=== PATIENT | male | born 1990 | race African-American/Black ===

== ENCOUNTER 2020-06-28 13:04 | Emergency (ER) | payer MEDICAID ==
[~2020-06-28] VITALS: Ht 170.2 cm; Wt 75.0 kg
--- NOTE | 2020-06-28 13:50 | NUR ---
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
--- NOTE | 2020-06-28 14:22 | NUR ---
PT IN GOWN IN [facility]. PIV ACCESS ESTABLISHED AT THIS TIME. LABS DRAWN. PT ATTACHED TO VS MONITORS. VSS. NEW ORDERS RECEIVED AT THIS TIME. PT TO BE MEDICATED PER MAR FOR PAIN AND NAUSEA. IV FLUIDS INITIATED AT THIS TIME.
[2020-06-28] MEDS ORDERED: MORPHINE SULFATE 4 MG/ML, 1ML ONE (14:26)
[2020-06-28] MEDS ORDERED: ONDANSETRON 2MG/ML, 2ML ONE (14:26)
[2020-06-28] MEDS ORDERED: ONDANSETRON 2MG/ML, 2ML IVPush ONE (14:30)
[2020-06-28] MEDS ORDERED: MORPHINE SULFATE 4 MG/ML, 1ML IVPush PRN (14:30)
[2020-06-28] MEDS ORDERED: SODIUM CHLORIDE 0.9% 1,000ML IVBOLUS ONE (14:30)
[2020-06-28 14:41] LABS: BASOPHILS % (AUTO) 1 % (0-1); EOSINOPHILS % (AUTO) 2 % (1-7); LYMPHOCYTES % (AUTO) 26 % (22-44); MEAN CORPUSCULAR HGB CONC 32.3 g/dL (33.2-36.2); MEAN PLATELET VOLUME 8.7 fL (7.4-10.4); MONOCYTES % (AUTO) 10 % (2-9); NEUTROPHILS % (AUTO) 62 % (42-75); PLATELET COUNT 225 x10^3/uL (130-400); RED BLOOD COUNT 5.79 x10^6/uL (4.38-5.82); RED CELL DISTRIBUTION WIDTH 14.7 % (9.4-14.8)
[2020-06-28 14:43] LABS: MD NO
[2020-06-28 14:45] LABS: ALANINE AMINOTRANSFERASE 32 U/L (12-78); ALBUMIN 3.9 g/dL (3.4-5.0); ANION GAP 3 mmol/L (5-15); CALCIUM 8.9 mg/dL (8.5-10.1); CHLORIDE 105 mmol/L (98-107); CREATININE 1.36 mg/dL (0.7-1.3)
[2020-06-28 14:47] LABS: ALKALINE PHOSPHATASE 72 U/L (45-117); BILIRUBIN,TOTAL 0.8 mg/dL (0.2-1.0); TOTAL PROTEIN 8.1 g/dL (6.4-8.2)
[2020-06-28 14:50] LABS: MICROSCOPIC NOT IND
--- NOTE | 2020-06-28 15:52 | NUR ---
PT ASLEEP IN [facility] AT THIS TIME; NADN. CALL LIGHT IS WITHIN REACH OF THIS PATIENT AT THIS TIME.
--- NOTE | 2020-06-28 16:45 | NUR ---
PT D/C WITH D/C SUMMARY AND SCRIPTS. ALL QUESTIONS ANSWERED. PT PIV D/C WITH TIP INTACT. PT AMBULATES TO REGISTRATION DESK WITH STEADY GAIT AND DENIES ANY OTHER NEEDS PERTAINING TO THIS VISIT.
[2020-06-28 16:46] VITALS: BP 114/77
== END 2020-06-28 16:51 | disposition home or self-care (01) ==
LOC: ED 14:09
DX: R10.32 Left lower quadrant pain (principal); F17.210 Nicotine dependence, cigarettes, uncomplicated
CPT/HCPCS: 36415; 80053; 81003; 83690; 85025; 96361; 96374; 96375; 99284; 99406; J2270; J2405; J7030